=== PATIENT | male | born 1995 | race Two or more races ===

== ENCOUNTER 2023-04-19 13:50 | Emergency (ER) | payer OTHER, SELFPAY ==
[2023-04-19 13:52] VITALS: BP 139/72; PULSE 78; RESP 16; TEMP 36.6; O2SAT 99; BMI 25.7
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
== END 2023-04-19 14:43 | disposition home or self-care (01) ==
LOC: ED 15:05
PROVIDERS: Emergency Provider Emergency Medicine; Visit Provider Emergency Medicine
DX: S09.8XXA Other specified injuries of head, initial encounter (principal); V89.2XXA Person injured in unspecified motor-vehicle accident, traffic, initial encounter; Y92.410 Unspecified street and highway as the place of occurrence of the external cause
CPT/HCPCS: 99282